=== PATIENT | male | born 1965 | race Caucasian/White ===

== ENCOUNTER → 2016-12-15 | Outpatient (CLI) | payer OTHER ==
--- NOTE | 2016-12-15 16:42 | CR ---
EXAMINATION: Right shoulder HISTORY: Pain COMPARISON: MRI dated 11/09/2014 TECHNIQUE: 3 views FINDINGS/IMPRESSION: Severe joint space narrowing and osteoarthritic changes are noted within the ri ght glenohumeral joint. Mild degenerative changes noted within the right acromioclavicular joint. No fracture or acute osseous abnormality.
== END ==
LOC: MW.CHORTHO 07:32
PROVIDERS: ATTEND Physician Assistant
DX: M25.511 Pain in right shoulder (principal); M19.011 Primary osteoarthritis, right shoulder
CPT/HCPCS: 73030-26-RT; 73030-RT

== ENCOUNTER 2017-06-22 19:50 | Emergency (ER) | payer OTHER ==
--- NOTE | 2017-06-22 20:38 | EDM.PDOC ---
ED HPI GENERAL MEDICAL PROBLEM - General Chief Complaint: ENT Problem Stated Complaint: PT HAS EAR INFECTION Time Seen by Provider: 06/22/17 20:11 Source of Information: Reports: Patient History Limitations: Reports: No Limitations - History of Present Illness INITIAL COMMENTS - FREE TEXT/NARRATIVE: HISTORY AND PHYSICAL: History of present illness: Patient is a 51-year-old male who presents to the emergency room today with complaints of left ear fullness. He states he has been using Debrox twice daily for the last 4 days trying to get "wax out of my ear". He is concerned that he has pushed the wax in "to deep" with his Q-tips he has been using. States that he is having difficulty hearing out of the left ear and the sensation of it being full. Denies any fever, chills, chest pain, shortness of breath. Denies any drainage of the ear. Review of systems: As per history of present illness and below otherwise all systems reviewed and negative. Past medical history: As per history of present illness and as reviewed below otherwise noncontributory. Surgical history: As per history of present illness and as reviewed below otherwise noncontributory. Social history: No reported history of drug or alcohol abuse. Family history: As per history of present illness and as reviewed below otherwise noncontributory. Physical exam: Gen.: Well-developed and well-nourished 51-year-old male. Appears nontoxic and in no acute distress. Alert and oriented HEENT: Atraumatic, normocephalic, pupils reactive, negative for conjunctival pallor or scleral icterus, mucous membranes moist, throat clear, neck supple, nontender, trachea midline. Unable to visualize the left tympanic membrane due to cerumen. Right tympanic membrane is normal. Lungs: Clear to auscultation, breath sounds equal bilaterally, chest nontender. Heart: S1S2, regular rate and rhythm without any overt murmurs. Abdomen: Soft, nondistended, nontender. Negative for masses or hepatosplenomegaly. Negative for costovertebral tenderness. Pelvis: Stable nontender. Genitourinary: Deferred. Rectal: Deferred. Extremities: Atraumatic, negative for cords or calf pain. Neurovascular unremarkable. Neuro: Awake, alert, oriented. Cranial nerves II through XII unremarkable. Cerebellum unremarkable. Motor and sensory unremarkable throughout. Exam nonfocal. Gentle irrigation was done by nursing staff. Upon further evaluation after the irrigation does appear to have some irritation. Unable to visualize the tympanic membrane due to the cerumen. Will treat the ear for internal and external ear infection. Have the patient continue to use to proximal. An referral for her nose and throat. Diagnostics: [] Therapeutics: Ear irrigation Impression: Cerumen impaction Plan: 1. Please avoid sticking Q-tips in the ear. Please take the antibiotics as prescribed (treating both internal/external ear infection). Debrox as directed. 2. Make a follow-up appointment with ear nose and throat in the next couple days. 3. Follow-up with your primary care provider in the next 1-2 days. Return to the ED as needed and as discussed. Definitive disposition and diagnosis as appropriate pending reevaluation and review of above. Duration: Day(s): Left Ear Pain Score (Numeric/FACES): 3 - Related Data Allergies Allergy/AdvReac Type Severity Reaction Status Date / Time No Known Allergies Allergy Verified 06/22/17 20:15 Home Meds: Home Meds Rosuvastatin [Crestor] 10 mg PO DAILY 10/17/14 [History] Past Medical History - Past Surgical History Cardiovascular Surgical History: Reports: Varicose GI Surgical History: Reports: Appendectomy Social & Family History - Family History Family Medical History: Noncontributory - Tobacco Use Smoking Status *Q: Never Smoker - Alcohol Use Days Per Week of Alcohol Use: 2 Number of Drinks Per Day: 0 Total Drinks Per Week: 0 - Recreational Drug Use Recreational Drug Use: No Drug Use in Last 12 Months: No ED ROS ENT - Review of Systems Review Of Systems: ROS reveals no pertinent complaints other than HPI. ED EXAM, ENT - Physical Exam Exam: See Below (See dictation) Course - Vital Signs Last Recorded V/S: Last Vital Signs Temp 37.2 C 06/22/17 20:16 Pulse 95 06/22/17 20:16 Resp 18 06/22/17 20:16 BP 142/82 H 06/22/17 20:16 Pulse Ox 97 06/22/17 20:16 - Orders/Labs/Meds Orders: Active Orders 24 hr Category Date Time Status Communication Order [RC] STAT Care 06/22/17 20:33 Active Meds: Medications Discontinued Medications Generic Name Dose Route Start Last Admin Trade Name Freq PRN Reason Stop Dose Admin Mineral Oil 15 ml 06/22/17 20:55 Raiza TOP 06/22/17 20:56 NOW STA Departure - Departure Time of Disposition: 21:14 Disposition: Home, Self-Care 01 Clinical Impression: Otalgia of left ear Cerumen impaction Qualifiers: Laterality: left Qualified Code(s): H61.22 - Impacted cerumen, left ear Otitis externa Qualifiers: Otitis externa type: unspecified type Chronicity: unspecified Laterality: left Qualified Code(s): H60.92 - Unspecified otitis externa, left ear - Discharge Information Referrals: PCP,None [Primary Care Provider] - Forms: ED Department Discharge Additional Instructions: My general discharge The following information is given to patients seen in the emergency department who are being discharged to home. This information is to outline your options for follow-up care. We provide all patients seen in our emergency department with a follow-up referral. The need for follow-up, as well as the timing and circumstances, are variable depending upon the specifics of your emergency department visit. If you don't have a primary care physician on staff, we will provide you with a referral. We always advise you to contact your personal physician following an emergency department visit to inform them of the circumstance of the visit and for follow-up with them and/or the need for any referrals to a consulting specialist. The emergency department will also refer you to a specialist when appropriate. This referral assures that you have the opportunity for follow-up care with a specialist. All of these measure are taken in an effort to provide you with optimal care, which includes your follow-up. Under all circumstances we always encourage you to contact your private physician who remains a resource for coordinating your care. When calling for follow-up care, please make the office aware that this follow-up is from your recent emergency room visit. If for any reason you are refused follow-up, please contact the [facility] Emergency Department at and asked to speak to the emergency department charge nurse. [facility] Primary [facility]/ENT (Dr Jha) [address] [place] [id number] 1. Please avoid sticking Q-tips in the ear. Please take the antibiotics as prescribed (treating both internal/external ear infection). Debrox as directed. 2. Make a follow-up appointment with ear nose and throat in the next couple days. 3. Follow-up with your primary care provider in the next 1-2 days. Return to the ED as needed and as discussed. - My Orders Last 24 Hours: My Active Orders 06/22/17 20:33 Communication Order [RC] STAT - Assessment/Plan Last 24 Hours: My Active Orders 06/22/17 20:33 Communication Order [RC] STAT
[2017-06-22] MEDS ORDERED: Mineral Oil 10 ML Bottle TOP STA (20:55)
[2017-06-22] MEDS ORDERED: Carbamide Peroxide 6.5% Otic Soln 15 ML Bottle EARLF ONE (21:18)
[2017-06-22] MEDS ORDERED: Amoxicillin/Clavulanate K 875-125 MG Tab PO ONE (21:22)
[2017-06-22 22:12] VITALS: BP 144/78
== END 2017-06-22 21:51 | disposition home or self-care (01) ==
LOC: MW.ED 19:50
DX: H61.22 Impacted cerumen, left ear (principal); H60.92 Unspecified otitis externa, left ear; Z79.899 Other long term (current) drug therapy
CPT/HCPCS: 69209; 99282; A9270; 99283